=== PATIENT | female | born 1985 | race Two or more races ===

== ENCOUNTER 2019-11-05 00:44 | Emergency (ER) | payer OTHER ==
[~2019-11-05] VITALS: Ht 160 cm; Wt 81.6 kg
--- NOTE | 2019-11-05 01:01 | Emergency Room Report ---
History of Present Illness General Chief Complaint: Medical Clearance Source: Patient Present Illness HPI This a 33-year-old female with no significant past medical history. She was brought in by police for medical clearance. Patient was arrested for grand theft auto. Patient said that she has exposure to COVID. Roommate was positive for COVID. Patient claimed that she had fever a few days ago. Also with cough and congestion. Denies any fever now. No nausea vomiting or diarrhea. Nothing made it better. Nothing made it worse. Because of this, please officer want her to have a negative cover test before they take her to [facility]. Allergies: Coded Allergies: No Known Allergies (Unverified , 11/05/19) COVID-19 Screening Contact w/high risk pt: Yes Recent Travel to affected area: No Experienced COVID-19 symptoms?: Yes COVID-19 symptoms experienced: Fever (T>100.4F or >38C), Flu-Like Symptoms COVID-19 Testing performed HEALTHCARE ASSOCIATE: No Patient History Past Medical History: see triage record, old chart reviewed Past Surgical History: none Pertinent Family History: none Social History: Denies: smoking Last Menstrual Period: 11/03/19 Now: No : 4 Para: 4 Immunizations: other Reviewed Nursing Documentation: PMH: Agreed; PSxH: Agreed Nursing Documentation-PMH Hx Seizures: Yes Review of Systems Constitutional: Reports: fever Eye: Denies: eye pain, blurred vision ENT: Denies: ear pain, nose congestion, throat swelling Respiratory: Reports: cough, shortness of breath Cardiovascular: Denies: chest pain, palpitations Gastrointestinal: Denies: abdominal pain, diarrhea, nausea, vomiting Musculoskeletal: Denies: back pain, joint pain Skin: Denies: rash Neurological: Denies: headache, numbness Endocrine: Denies: increased thirst, increased urine Hematologic/Lymphatic: Denies: easy bruising All Other Systems: negative except mentioned in HPI Physical Exam Vital Signs Date Time Temp Pulse Resp B/P (MAP) Pulse Ox O2 Delivery O2 Flow Rate FiO2 11/05/19 00:47 97.5 74 20 113/63 (80) 97 Room Air This is normal Sp02 EP Interpretation: reviewed, normal General Appearance: well appearing, no apparent distress, alert Head: normocephalic, atraumatic Eyes: bilateral eye PERRL, bilateral eye EOMI ENT: hearing grossly normal, normal pharynx Neck: full range of motion, supple, no meningismus Respiratory: chest non-tender, lungs clear, normal breath sounds Cardiovascular #1: regular rate, rhythm, no murmur Gastrointestinal: normal bowel sounds, non tender, no mass, no organomegaly, no bruit, non-distended Musculoskeletal: back normal, normal range of motion, gait/station normal Psychiatric: mood/affect normal Medical Decision Making Diagnostic Impression: Primary Impression: Examination, medicolegal reason Additional Impression: URI (upper respiratory infection) Qualified Codes: J06.9 - Acute upper respiratory infection, unspecified ER Course She presents with cough and congestion. COVID negative. Will discharge home. Last Vital Signs Date Time Temp Pulse Resp B/P (MAP) Pulse Ox O2 Delivery O2 Flow Rate FiO2 11/05/19 00:47 97.5 74 20 113/63 (80) 97 Room Air Status: unchanged Disposition: LAW ENFORCEMENT IN [facility] Condition: Stable Referrals: NOT CHOSEN IPA/MD,REFERRING (PCP) Additional Instructions: Abstain from drugs and alcohol. Follow-up with your doctor in 7 days but return if worse. Terrell Euceda MD Nov 05, 2019 01:01
[2019-11-05 01:02] VITALS: BP 113/63
[2019-11-05 01:49] VITALS: BP 113/63
== END 2019-11-05 01:49 ==
LOC: EMR 00:55
DX: Z20.828 Contact with and (suspected) exposure to other viral communicable diseases (principal); J06.9 Acute upper respiratory infection, unspecified; G40.909 Epilepsy, unspecified, not intractable, without status epilepticus
CPT/HCPCS: 99282; U0002